=== PATIENT | female | born 1990 | race Hispanic/Latino ===

== ENCOUNTER 2017-04-19 07:40 | Day surgery (SDC) | payer BC ==
[2017-04-19] MEDS ORDERED: Lactated Ringer's 1,000 ML IV ONE (08:21)
[2017-04-19] MEDS ORDERED: Propofol 10 mg/ml Inj (20 ML) ONE (08:48)
[2017-04-19] MEDS ORDERED: Lidocaine 2% MPF (5 ml) Inj ONE (08:48)
[2017-04-19 09:16] VITALS: TEMP 96.8
[2017-04-19 09:41] VITALS: BP 100/60; PULSE 66; RESP 20; O2SAT 99
== END 2017-04-19 10:00 | disposition home or self-care (01) ==
LOC: H.ENDO 07:40
PROVIDERS: ATTEND Internal Medicine Gastroenterology
DX: K50.90 Crohn's disease, unspecified, without complications (principal); Z87.19 Personal history of other diseases of the digestive system
CPT/HCPCS: 45380; 88305; J2704; J7120